=== PATIENT | female | born 2005 | race Caucasian/White ===

== ENCOUNTER 2025-01-04 18:47 | Emergency (ER) | payer BC ==
[2025-01-04] MEDS ORDERED: TYLENOL 325 MG ONE (19:31)
--- NOTE | 2025-01-04 19:31 | ERPHSYRPT ---
- History of Present Illness Time Seen by Provider: 01/04/25 18:49 Source: patient Exam Limitations: no limitations Patient Subjective Stated Complaint: c/o cramping and bleeding with Triage Nursing Assessment: patient brought to ED with c/o bleeding cramping with . patient states she noted minimal bleeding when she went to the restroom. patient rates cramping pain 6/10 at this time. states that she has had 2 previous miscarriages. vitals wnl, skin w/n/d, afebrile, gait steady Physician History: 19 years old 3 para 0 at almost 10 weeks gestations presented in the ER with complaints of spotting and cramping which started almost an hour prior to arrival. Patient denies passing any tissues or clots. Mild to moderate cramping. Denies any urinary complaint. No recent sexual activity. Allergies/Adverse Reactions: Penicillins Allergy (Severe, Verified 01/04/25 19:19) Swelling adhesive tape Allergy (Intermediate, Verified 01/04/25 19:19) Rash blue dye Allergy (Intermediate, Verified 01/04/25 19:19) Hives Latex, Natural Rubber Adverse Reaction (Severe, Verified 01/04/25 19:19) Shortness of Breath Home Medications: Progesterone, Micronized [Endometrin] 100 mg VAG DAILY 12/07/24 [History] Pnv No.103/Folic/Om3s/Fish Oil [ Gummies] 1 tab PO DAILY 12/13/24 [History] Metoclopramide HCl 10 mg PO DAILY PRN PRN 01/04/25 [History] Hx Tetanus, Diphtheria Vaccination/Date Given: Yes Hx Influenza Vaccination/Date Given: Yes Hx Pneumococcal Vaccination/Date Given: No Travel Risk - International Travel Have you traveled outside of the country in past 3 weeks: No - Emerging Infectious Disease Are you exhibiting symptoms associated with any current EIDs: No - Review of Systems Constitutional: No Symptoms Ears, Nose, & Throat: No Symptoms Respiratory: No Symptoms Cardiac: No Symptoms Abdominal/Gastrointestinal: No Symptoms Genitourinary Symptoms: Musculoskeletal: No Symptoms Skin: No Symptoms Neurological: No Symptoms Endocrine: No Symptoms Hematologic/Lymphatic: No Symptoms - Past Medical History Pertinent Past Medical History: Yes Psycho-Social History: Anxiety, Depression Other Medical History: broke tailbone 10 years ago - Past Surgical History Past Surgical History: No - Female History Hx Last Menstrual Period: 10/30/2024 Hx Now: Yes (10 weeks) Gestational Age: 10 weeks - Social History Smoking Status: Never smoker Exposure to second hand smoke: No Drug Use: none - Social Determinants of Health Will the patient participate in the screening: Declined to provide - Nursing Vital Signs Nursing Vital Signs: Initial Vital Signs Pulse Rate 113 H 01/04/25 19:09 Respiratory Rate 105 H 01/04/25 19:09 Blood Pressure 116/71 01/04/25 19:09 O2 Sat by Pulse Oximetry 96 01/04/25 19:09 Pain Scale Pain Intensity 6 - Physical Exam General Appearance: no apparent distress, alert Eye Exam: PERRL/EOMI Ears, Nose, Throat Exam: normal ENT inspection Neck Exam: normal inspection, full range of motion Respiratory Exam: normal breath sounds, lungs clear Cardiovascular Exam: normal heart sounds, tachycardia Gastrointestinal/Abdomen Exam: soft, normal bowel sounds, No tenderness Back Exam: normal inspection, normal range of motion Extremity Exam: normal inspection, normal range of motion Neurologic Exam: alert, oriented x 3, cooperative Skin Exam: normal color SpO2 Interpretation: normal SpO2: 96 O2 Delivery: Room Air Ordered Tests: Active Orders 24 hr Category Date Time Status IV Insertion STAT Care 01/04/25 19:18 Active OB FOLLOW UP PER [facility] [US] Stat Exams 01/04/25 20:40 Taken CBC W DIFF Stat Lab 01/04/25 19:24 Completed CMP Stat Lab 01/04/25 19:24 Completed HCG, Quantitative (Inhouse) Stat Lab 01/04/25 19:24 Completed UA W/RFX UR CULTURE Stat Lab 01/04/25 19:20 Completed Medication Summary Discontinued Medications Generic Name Dose Route Start Last Admin Trade Name Mary PRN Reason Stop Dose Admin Acetaminophen 975 mg 01/04/25 19:18 01/04/25 19:33 Acetaminophen 325 Mg Tablet PO 01/04/25 19:19 975 mg STAT ONE Administration Acetaminophen Confirm 01/04/25 19:31 Acetaminophen 325 Mg Tablet Administered 01/04/25 19:32 Dose 975 mg .ROUTE .STK-MED ONE Sodium Chloride 1,000 mls @ 999 mls/hr 01/04/25 19:18 01/04/25 20:34 Sodium Chloride 0.9% 1000 Ml IV 01/04/25 20:18 Infused .Q1H1M STA Infusion Sodium Chloride Confirm 01/04/25 19:31 Sodium Chloride 0.9% 1000 Ml Administered 01/04/25 19:32 Dose 1,000 mls @ .ROUTE .[facility]-MED ONE Lab/Rad Data: Laboratory Result Diagrams 01/04/25 19:24 01/04/25 19:24 Laboratory Results 01/04/25 01/04/25 01/04/25 Range/Units 19:24 19:24 19:24 WBC 7.8 (3.98-10.04) x10^3/uL RBC 4.22 (3.93-5.22) x10^6/uL Hgb 12.6 (11.2-15.7) g/dL Hct 37.0 (34.1-44.9) % MCV 87.7 (79.4-94.8) fL MCH 29.9 (25.6-32.2) pg MCHC 34.1 (32.2-35.5) g/dL RDW 12.1 (11.7-14.4) % Plt Count 157 L (182-369) x10^3/uL MPV 11.2 (9.4-12.3) fL Gran % 79.7 H (34.0-71.1) % Immature Gran % (Auto) 0.3 (0.001-0.429) % Nucleat RBC Rel Count 0.0 (0.00-0.2) % Eos # (Auto) 0.04 (0.04-0.36) x10^3/uL Immature Gran # (Auto) 0.02 (0.001-0.031) x10^3u/L Absolute Lymphs (auto) 1.21 (1.18-3.74) x10^3/uL Absolute Monos (auto) 0.28 (0.24-0.86) x10^3/uL Absolute Nucleated RBC 0.00 (0.00-0.012) x10^3u/L Lymphocytes % 15.6 L (19.3-51.7) % Monocytes % 3.6 L (4.7-12.5) % Eosinophils % 0.5 L (0.7-5.8) % Basophils % 0.3 (0.1-1.2) % Absolute Granulocytes 6.20 H (1.56-6.13) x10^3/uL Basophils # 0.02 (0.01-0.08) x10^3/uL Sodium 136 (135-145) mmol/L Potassium 3.7 (3.5-5.1) mmol/L Chloride 104 (98-107) mmol/L Carbon Dioxide 22 (22-30) mmol/L Anion Gap 13.4 (5-15) MEQ/L BUN 4 L (7-17) mg/dL Creatinine 0.43 L (0.52-1.04) mg/dL Estimated GFR 142.7 ML/MIN Glucose 103 (74-106) mg/dL Calcium 9.3 (8.4-10.2) mg/dL Total Bilirubin 0.30 (0.2-1.3) mg/dL AST 21 (14-36) U/L ALT 10 (0-35) U/L Alkaline Phosphatase 62 (38-126) U/L Serum Total Protein 7.9 (6.3-8.2) g/dL Albumin 4.4 (3.5-5.0) g/dL Beta HCG, Quant 81979 mIU/ml Urine Color (Yellow) Urine Appearance (Clear) Urine pH (4.6-8.0) Ur Specific [place] (1.005-1.030) Urine Protein (Negative) Urine Glucose (UA) (Negative) mg/dL Urine Ketones (Negative) Urine Blood (Negative) Urine Nitrite (Negative) Urine Bilirubin (Negative) Urine Urobilinogen (0.2) mg/dL Ur Leukocyte Esterase (Negative) U Hyaline Cast (Auto) (0-2) /LPF Urine Microscopic RBC (0-5) /HPF Urine Microscopic WBC (0-5) /HPF Ur Epithelial Cells (None Seen) /HPF Urine Bacteria (None Seen) /HPF Urine Culture Reflexed (NO) ABO Group A Rh Factor POSITIVE Antibody Screen NEGATIVE (NEGATIVE) 01/04/25 Range/Units 19:20 WBC (3.98-10.04) x10^3/uL RBC (3.93-5.22) x10^6/uL Hgb (11.2-15.7) g/dL Hct (34.1-44.9) % MCV (79.4-94.8) fL MCH (25.6-32.2) pg MCHC (32.2-35.5) g/dL RDW (11.7-14.4) % Plt Count (182-369) x10^3/uL MPV (9.4-12.3) fL Gran % (34.0-71.1) % Immature Gran % (Auto) (0.001-0.429) % Nucleat RBC Rel Count (0.00-0.2) % Eos # (Auto) (0.04-0.36) x10^3/uL Immature Gran # (Auto) (0.001-0.031) x10^3u/L Absolute Lymphs (auto) (1.18-3.74) x10^3/uL Absolute Monos (auto) (0.24-0.86) x10^3/uL Absolute Nucleated RBC (0.00-0.012) x10^3u/L Lymphocytes % (19.3-51.7) % Monocytes % (4.7-12.5) % Eosinophils % (0.7-5.8) % Basophils % (0.1-1.2) % Absolute Granulocytes (1.56-6.13) x10^3/uL Basophils # (0.01-0.08) x10^3/uL Sodium (135-145) mmol/L Potassium (3.5-5.1) mmol/L Chloride (98-107) mmol/L Carbon Dioxide (22-30) mmol/L Anion Gap (5-15) MEQ/L BUN (7-17) mg/dL Creatinine (0.52-1.04) mg/dL Estimated GFR ML/MIN Glucose (74-106) mg/dL Calcium (8.4-10.2) mg/dL Total Bilirubin (0.2-1.3) mg/dL AST (14-36) U/L ALT (0-35) U/L Alkaline Phosphatase (38-126) U/L Serum Total Protein (6.3-8.2) g/dL Albumin (3.5-5.0) g/dL Beta HCG, Quant mIU/ml Urine Color Yellow (Yellow) Urine Appearance Clear (Clear) Urine pH 7.0 (4.6-8.0) Ur Specific [place] 1.020 (1.005-1.030) Urine Protein Negative (Negative) Urine Glucose (UA) Negative (Negative) mg/dL Urine Ketones 15 A (Negative) Urine Blood Negative (Negative) Urine Nitrite Negative (Negative) Urine Bilirubin Negative (Negative) Urine Urobilinogen 1.0 A (0.2) mg/dL Ur Leukocyte Esterase Negative (Negative) U Hyaline Cast (Auto) 3-5 A (0-2) /LPF Urine Microscopic RBC 3-5 (0-5) /HPF Urine Microscopic WBC 0-2 (0-5) /HPF Ur Epithelial Cells Few (None Seen) /HPF Urine Bacteria Few A (None Seen) /HPF Urine Culture Reflexed NO (NO) ABO Group Rh Factor Antibody Screen (NEGATIVE) - Progress Progress: improved Air Movement: good Progress Note: 01/04/25 22:19 Differential diagnosis: Vaginal bleeding affecting early , subchorionic hemorrhage, threatened 19-year-old 3 para 0 is evaluated in the ER for vaginal spotting and cramping started earlier. Patient is almost 10 weeks gestation. She is given fluids and Tylenol, feeling better on reevaluation. No bleeding on reeval. Has normal white count, chemistries fairly unremarkable and no UTI. Beta-hCG quant increased from 33K-46K Discussed with Dr. Black patient's probably will be, recommended obtaining ultrasound. Ultrasound per preliminary report has a single IUP with 10 weeks 3 days, heart rate in 170s and still having tiny subchorionic bleed which was there on the previous exam. Shared the results of workup and recommendations from primary OB and need for outpatient follow-up with patient which she seems understanding. Stable for discharge. Complexity of problems addressed: Moderate acuity Complexity of data reviewed/analyzed,: Moderate extensive Risk of complication: Low to moderate Blood Culture(s) Obtained: No Antibiotics given: No Discussed with DrFredy: Other (Dr. Black will be) Counseled pt/family regarding: lab results, diagnosis, need for follow-up, rad results Medical Desision Making - Discussion of managment Care discussed with:: specialist Reviewed:: Test results, Need for additional workup Agreed on:: Treatment plan, need for follow-up Will see patient: In office - Diagnostic Testing Diagnostic test were ordered, analyzed, and reviewed by me: Yes Radiological Interpretation: Reviewed by me - Risk of complications The pt has a mod risk of morbidity or mortality based on: Need for prescription drug management - Departure Departure Disposition: Home Clinical Impression: Vaginal bleeding affecting early , Subchorionic hemorrhage in first trimester Condition: Stable Critical Care Time: No Referrals: OLGA BLACK MD [Primary Care Provider, [facility]] - Follow up with PCP 1 day Instructions: Bleeding in Early (DC) Additional Instructions: Call your primary OB for reevaluation in the morning. Drink plenty of fluids, pelvic rest. Return to ER for worsening bleeding, cramping.
[2025-01-04 19:32] VITALS: RESP 18
[2025-01-04] MEDS: TYLENOL 325 MG PO ONE (19:33)
[2025-01-04 19:34] LABS: BASOPHIL % 0.3 % (0.1-1.2); Basophil (Absolute #) 0.02 x10^3/uL (0.01-0.08); Eosinophil (Absolute #) 0.04 x10^3/uL (0.04-0.36); Hematocrit 37.0 % (34.1-44.9); Hemoglobin 12.6 g/dL (11.2-15.7); IMMATURE GRAN # 0.02 x10^3u/L (0.001-0.031); IMMATURE GRAN % 0.3 % (0.001-0.429); Lymphocyte (Absolute #) 1.21 x10^3/uL (1.18-3.74); Mean Corpuscular Hemoglobin 29.9 pg (25.6-32.2); Mean Corpuscular Hgb Concent. 34.1 g/dL (32.2-35.5); Monocyte (Absolute #) 0.28 x10^3/uL (0.24-0.86); NUCLEATED RBC # 0.00 x10^3u/L (0.00-0.012); NUCLEATED RBC % 0.0 % (0.00-0.2); Platelet Count 157 x10^3/uL (182-369); Red Blood Count 4.22 x10^6/uL (3.93-5.22); White Blood Count 7.8 x10^3/uL (3.98-10.04)
[2025-01-04 19:40] LABS: Glucose, Urine Negative (Negative); Protein,Urine Dip Negative (Negative); WBC 0-2 /HPF (0-5)
[2025-01-04 19:47] LABS: Calcium 9.3 mg/dL (8.4-10.2); Carbon Dioxide 22.0 mmol/L (22-30); Creatinine 1 0.43 mg/dL (0.52-1.04); EST GLOMERULAR FILTRATION RATE 142.7 ML/MIN; Glucose 103.0 mg/dL (74-106); Potassium 3.7 mmol/L (3.5-5.1); SGOT/AST 21.0 U/L (14-36); SGPT/ALT 10.0 U/L (0-35); Total Protein 7.9 g/dL (6.3-8.2)
[2025-01-04 20:17] LABS: ABO TYPING A; RH TYPING POSITIVE
[2025-01-04 22:20] VITALS: BP 102/51; PULSE 80
[2025-01-04 22:23] VITALS: O2SAT 96
--- NOTE | 2025-01-05 08:31 | XRAY ---
Indication: Bleeding and cramping. Limited transabdominal early OB ultrasound performed. Comparison: December 12, 2024 Again single intrauterine gestational with mean crown-rump length 3.54 cm corresponding to 10 weeks 3 days. heart rate 176 bpm. Minimally enlarging tiny subchorionic hemorrhage measuring 1.8 x 0.3 x 1.1 cm. Impression: Again single viable intrauterine measuring 10 weeks 3 days. Normal progression of . Minimally enlarging tiny subchorionic hemorrhage. Comment: Preliminary report was given.
== END 2025-01-04 22:38 | disposition home or self-care (01) ==
LOC: ED 18:47
DX: O20.8 Other hemorrhage in early pregnancy (principal); O43.891 Other placental disorders, first trimester; Z3A.10 10 weeks gestation of pregnancy; Z79.899 Other long term (current) drug therapy

== ENCOUNTER 2025-03-25 19:58 | Observation (INO) | payer BC ==
[2025-03-25 20:28] VITALS: RESP 18; TEMP 98; O2SAT 98
[2025-03-25 20:39] LABS: Glucose, Urine Negative (Negative); Protein,Urine Dip Negative (Negative); RBC 0-2 /HPF (0-5); WBC 0-2 /HPF (0-5)
[2025-03-25 20:53] LABS: Amphetamine,Urine NEGATIVE (NEGATIVE); Barbiturate,Urine NEGATIVE (NEGATIVE); Benzodiazepine,Urine NEGATIVE (NEGATIVE); Cocaine,Urine NEGATIVE (NEGATIVE); Methadone,Urine NEGATIVE (NEGATIVE); Opiate,Urine NEGATIVE (NEGATIVE); PCP,Urine NEGATIVE (NEGATIVE); THC,Urine NEGATIVE (NEGATIVE)
[2025-03-25 21:15] VITALS: BP 111/60; PULSE 86
== END 2025-03-25 21:20 | disposition home or self-care (01) ==
LOC: OB 19:58
PROVIDERS: ADMIT Family Medicine; ATTEND Family Medicine
DX: Z34.82 Encounter for supervision of other normal pregnancy, second trimester (principal); Z3A.22 22 weeks gestation of pregnancy

== ENCOUNTER 2025-03-27 03:19 | Observation (INO) | payer BC ==
[2025-03-27 03:39] VITALS: TEMP 98.5; O2SAT 98
[2025-03-27 04:15] LABS: BASOPHIL % 0.2 % (0.1-1.2); Basophil (Absolute #) 0.02 x10^3/uL (0.01-0.08); Eosinophil (Absolute #) 0.14 x10^3/uL (0.04-0.36); Hematocrit 30.8 % (34.1-44.9); Hemoglobin 10.2 g/dL (11.2-15.7); IMMATURE GRAN # 0.03 x10^3u/L (0.001-0.031); IMMATURE GRAN % 0.3 % (0.001-0.429); Lymphocyte (Absolute #) 1.69 x10^3/uL (1.18-3.74); Mean Corpuscular Hemoglobin 29.8 pg (25.6-32.2); Mean Corpuscular Hgb Concent. 33.1 g/dL (32.2-35.5); Monocyte (Absolute #) 0.42 x10^3/uL (0.24-0.86); NUCLEATED RBC # 0.00 x10^3u/L (0.00-0.012); NUCLEATED RBC % 0.0 % (0.00-0.2); Platelet Count 124 x10^3/uL (182-369); Red Blood Count 3.42 x10^6/uL (3.93-5.22); White Blood Count 8.7 x10^3/uL (3.98-10.04)
[2025-03-27 04:49] LABS: Glucose 93 mg/dL (74-106)
[2025-03-27 04:51] LABS: Creatinine 1 0.48 mg/dL (0.52-1.04); EST GLOMERULAR FILTRATION RATE 139.0 ML/MIN
[2025-03-27 04:52] LABS: Calcium 8.9 mg/dL (8.4-10.2); Carbon Dioxide 24 mmol/L (22-30); Potassium 3.6 mmol/L (3.5-5.1)
[2025-03-27 04:53] LABS: SGOT/AST 16 U/L (14-36); SGPT/ALT 10 U/L (0-35); Total Protein 6.6 g/dL (6.3-8.2)
[2025-03-27 05:02] VITALS: BP 100/59; PULSE 78; RESP 18
== END 2025-03-27 05:10 | disposition home or self-care (01) ==
LOC: OB 03:19
PROVIDERS: ADMIT Family Medicine; ATTEND Family Medicine
DX: Z34.82 Encounter for supervision of other normal pregnancy, second trimester (principal); Z3A.22 22 weeks gestation of pregnancy

== ENCOUNTER 2025-04-18 17:06 | Observation (INO) | payer BC ==
[2025-04-18 18:21] LABS: Glucose, Urine Negative (Negative); Protein,Urine Dip Negative (Negative); RBC 0-2 /HPF (0-5); WBC 0-2 /HPF (0-5)
[2025-04-18 18:34] LABS: Amphetamine,Urine NEGATIVE (NEGATIVE); Barbiturate,Urine NEGATIVE (NEGATIVE); Benzodiazepine,Urine NEGATIVE (NEGATIVE); Cocaine,Urine NEGATIVE (NEGATIVE); Methadone,Urine NEGATIVE (NEGATIVE); Opiate,Urine NEGATIVE (NEGATIVE); PCP,Urine NEGATIVE (NEGATIVE); THC,Urine NEGATIVE (NEGATIVE)
[2025-04-18 21:21] VITALS: BP 117/60; PULSE 82; RESP 19; TEMP 98.2; O2SAT 98
== END 2025-04-18 21:30 | disposition home or self-care (01) ==
LOC: OB 17:06
PROVIDERS: ADMIT Family Medicine; ATTEND Family Medicine
DX: Z34.82 Encounter for supervision of other normal pregnancy, second trimester (principal); Z3A.25 25 weeks gestation of pregnancy